=== PATIENT | male | born 2000 | race Caucasian/White ===

== ENCOUNTER 2018-03-10 19:53 | Emergency (ER) | payer OTHER ==
--- NOTE | 2018-03-10 20:33 | EDPHY ---
H & P Stated Complaint: left side CP pain Time Seen by Provider: 03/10/18 20:00 HPI/ROS: CHIEF COMPLAINT: Left-sided back pain HISTORY OF PRESENT ILLNESS: 17-year-old male presents with left-sided back pain. Sudden onset left thoracic back pain 2 hr ago. The pain is sharp and stabbing and increases with deep inspiration. Concerned about recurrent pneumothorax. History of pneumothorax in 2017, status post pleurodesis. This pain is different from the prior pain associated with pneumothorax. No recent trauma or heavy lifting. No URI symptoms. REVIEW OF SYSTEMS: complete 10 point ROS reviewed and is negative except for the noted elements in the HPI - Personal History Current Tetanus/Diphtheria Vaccine: Yes Current Tetanus Diphtheria and Acellular Pertussis (TDAP): Yes - Medical/Surgical History Hx Asthma: Yes Hx Chronic Respiratory Disease: No Hx Diabetes: No Hx Cardiac Disease: No Hx Renal Disease: No Hx Cirrhosis: No Hx Alcoholism: No Hx HIV/AIDS: No Hx Splenectomy or Spleen Trauma: No Other PMH: pneumothorax, removal of the left upper lung - Social History Smoking Status: Never smoked - Physical Exam Exam: General Appearance: Alert, pleasant Eyes: Pupils equal and round, no conjunctival pallor ENT, Mouth: Mucous membranes moist Neck: Normal inspection Respiratory: Lungs are clear to auscultation Cardiovascular: Regular rate and rhythm Gastrointestinal: Abdomen is soft and nontender Back: Normal inspection, no tenderness Neurological: A&O, nonfocal, normal gait Skin: Warm and dry, no rash Extremities: Normal inspection Psychiatric: Mood and affect normal Constitutional: Initial Vital Signs Temperature (C) 36.9 C 03/10/18 19:54 Heart Rate 90 03/10/18 19:54 Respiratory Rate 16 03/10/18 19:54 Blood Pressure 137/72 H 03/10/18 19:54 O2 Sat (%) 100 03/10/18 19:54 O2 Delivery Mode Room Air Allergies/Adverse Reactions: Penicillins Allergy (Verified 03/10/18 19:58) Home Medications: Medication Instructions Recorded NK [No Known Home Meds] 03/10/18 Medical Decision Making - Diagnostics EKG Interpretation: EKG interpreted by me reveals normal sinus rhythm, rate 80, no ST or T segment changes. Interpretation: Normal EKG Imaging Results: Imaging Impressions Chest X-Ray 03/10/18 20:01 Impression: Negative chest. Imaging: I viewed and interpreted images myself ED Course/Re-evaluation: Presents with left thoracic back pain. Chest x-ray reveals no evidence of pneumothorax. EKG reveals no evidence of ischemia or dysrhythmia. Results discussed with the patient. Likely musculoskeletal etiology of pain. Ibuprofen 600 mg orally given. Warning signs discussed. Will return for worsening symptoms or any concerns. Differential Diagnosis: Differential diagnosis includes though it is not limited to pneumonia, pneumothorax, pulmonary embolism, aortic dissection, pericarditis, acute coronary syndrome. - Data Points Medications Given: Discontinued Medications Ibuprofen (Motrin) 600 mg PO EDNOW ONE Stop: 03/10/18 20:35 Last Admin: 03/10/18 20:36 Dose: 600 mg Departure - Departure Disposition: Home, Routine, Self-Care Clinical Impression: Acute thoracic back pain Qualifiers: Back pain laterality: left Qualified Code(s): M54.6 - Pain in thoracic spine Condition: Good Instructions: Back Pain (ED) Additional Instructions: Your chest xray is normal today. Ibuprofen 600 mg 3 times daily while the pain persists. Return for worsening symptoms, shortness of breath or any concerns. Referrals: Vonnie Torres MD [[facility] Primary Care Provider] - As per Instructions
[2018-03-10] MEDS ORDERED: IBUPROFEN 600 MG TAB PO ONE (20:34)
--- NOTE | 2018-03-10 20:39 | CPEKG ---
Test Reason : OPEN Blood Pressure : / mmHG Vent. Rate : 080 BPM Atrial Rate : 079 BPM P-R Int : 166 ms QRS Dur : 098 ms QT Int : 356 ms P-R-T Axes : 052 084 058 degrees QTc Int : 411 ms Sinus rhythm Confirmed by Nasreen Multani ([id number]) on 03/10/2018 8:38:49 PM Referred By: Confirmed By:Nasreen Multani
[2018-03-10 20:50] VITALS: BP 108/56
== END 2018-03-10 20:49 | disposition home or self-care (01) ==
DX: M54.6 Pain in thoracic spine (principal); Z87.09 Personal history of other diseases of the respiratory system; Z90.2 Acquired absence of lung [part of]